=== PATIENT | female | born 1940 | race Caucasian/White ===

== ENCOUNTER 2024-04-22 16:57 | Inpatient (IN) ==
[2024-04-22 17:47] LABS: Basophils # (Auto) 0.03 K/mcL (0.00-0.30); Basophils % (Auto) 0.4 % (0.0-2.0); Eosinophils % (Auto) 2.6 % (0.0-7.0); Hematocrit 22.3 % (34.1-44.9); Hemoglobin 6.7 g/dL (11.2-15.7); Lymphocytes % (Auto) 18.4 % (15.5-49.0); Mean Cell Volume 85.8 fL (80.0-100.0); Mean Platelet Volume 9.6 fL (8.8-12.5); Monocytes # (Auto) 0.53 K/mcL (0.10-0.90); Neutrophils % (Auto) 71.2 % (38.0-78.0); Platelet Count 346 K/mcL (140-440); Red Cell Distribution Width 17.4 % (11.5-14.5); WBC 7.6 K/mcL (4.5-11.0)
[2024-04-22 17:56] LABS: Blood Urea Nitrogen 50 mg/dL (8-23); Calcium 9.4 mg/dL (8.6-10.4); Carbon Dioxide 19 mmol/L (22-30); Chloride 107 mmol/L (96-108); Glomerular Filtration Rate 17; Glucose 233 mg/dL (70-105); Potassium 4.7 mmol/L (3.3-5.1); Sodium 138 mmol/L (133-145)
[2024-04-22] MEDS: FUROSEMIDE 20 MG/2 ML VIAL IV ONE (18:21)
[2024-04-22 18:50] LABS: INR 1.2 (0.9-1.1)
[2024-04-22] MEDS: AZITHROMYCIN 250 MG TABLET PO ONE (19:21)
[2024-04-22] MEDS: cefTRIAXone 1 GM VIAL IV ONE (19:21)
[2024-04-22 19:24] LABS: Appearance,Urine Cloudy (Clear); Bacteria,Urine Many /hpf (0); Bilirubin,Urine Negative (Negative); Color,Urine Yellow; Glucose,Urine (UA) 100 mg/dL (Negative); Ketones,Urine Negative (Negative); Leukocyte Esterase,Urine Small /uL (Negative); Nitrate,Urine Negative (Negative); PH,Urine 5.5 (5.0-9.0); Protein,Urine >=300 mg/dL (Negative); Urine Blood Moderate ery/mcL (Negative); Urine RBC 15 /hpf (0-3); Urine Squamous Epithelial Cell 1 /hpf (0-4); Urine WBC > 182 /hpf (0-4); Urobilinogen,Urine Normal
[2024-04-22 19:31] LABS: Retic Absolute 0.05 M/mcL (0.02-0.10)
[2024-04-22 19:46] LABS: ALT/SGPT 15 U/L (<40); AST/SGOT 24 U/L (<32); Albumin 3.1 gm/dL (3.2-5.2); Alkaline Phosphatase 86 U/L (39-117); Bilirubin,Direct < 0.2 mg/dL (0-0.3); Bilirubin,Total < 0.2 mg/dL (0.1-1.0); Globulin 3.7 gm/dL (2.2-3.7)
[2024-04-22 19:57] LABS: Lactate Dehydrogenase 236 U/L (135-225)
[2024-04-22] MEDS: 0.9 % SODIUM CHLORIDE 250 ML IV SCH (20:09)
[2024-04-22] MEDS ORDERED: POTASSIUM CHLORIDE 20 MEQ TABLET PO PRN ×2 (20:50)
[2024-04-22] MEDS ORDERED: METOPROLOL TARTRATE 5 MG/5 ML VIAL IV PRN (20:50)
[2024-04-22] MEDS ORDERED: SENNOSIDES 1 TABLET PO PRN (20:50)
[2024-04-22] MEDS ORDERED: POLYETHYLENE GLYCOL 3350 17 GM PACKET PO PRN (20:50)
[2024-04-22] MEDS ORDERED: METOCLOPRAMIDE 10 MG/2 ML VIAL IV PRN (20:50)
[2024-04-22] MEDS ORDERED: POTASSIUM CHLORIDE 40 MEQ in DEXTROSE 5% IN WATER 500 ML IV PRN (20:50)
[2024-04-22] MEDS ORDERED: DEXTROSE 50% 50 ML VIAL IV PRN (20:50)
[2024-04-22] MEDS ORDERED: DEXTROSE 31 GM ORAL.SUSP PO PRN (20:50)
[2024-04-22] MEDS ORDERED: ONDANSETRON 4 MG/2 ML VIAL IV PRN (20:50)
[2024-04-22] MEDS ORDERED: MAGNESIUM SULFATE 2 GM/50 ML BAG IV PRN (20:50)
[2024-04-22] MEDS: FUROSEMIDE 40 MG/4 ML VIAL IV SCH (21:48)
[2024-04-22] MEDS: cloNIDine HCL 0.1 MG TABLET PO PRN (21:48)
[2024-04-22] MEDS: SODIUM BICARBONATE 650 MG TABLET PO SCH (21:48)
[2024-04-22] MEDS: DOCUSATE SODIUM 100 MG CAPSULE PO SCH (21:48)
[2024-04-22 22:01] LABS: Estimated Average Glucose(eAG) 171 mg/dL; Hemoglobin A1C 7.6 % Hgb (4.0-6.0)
[2024-04-22] MEDS: INSULIN LISPRO 1 UNIT/0.01 ML UNIT SQ SCH (22:06)
[2024-04-22 22:07] LABS: Iron 25 ug/dL (37-145); TIBC Calculation 288 ug/dl (228-428); Transferrin % Saturation 9 % (15-50)
[2024-04-22] MEDS: [UNRECOGNIZED DRUG - OTHER] SUB-Q SCH (22:13)
[2024-04-22] MEDS: INSULIN SUB-Q SCH (22:13)
[2024-04-22] MEDS: INSULIN GLARGINE 100 UNIT/ML SUB-Q SCH (22:13)
[2024-04-22] MEDS: INSULIN GLARGINE, HUMAN 1 UNIT/0.01 ML SQ ONE (22:14)
[2024-04-22] MEDS: DILTIAZEM HCL 60 MG PO SCH (22:15)
[2024-04-22 22:18] LABS: Ferritin 58.5 ng/mL (30.0-400.0)
[2024-04-22] MEDS: DILTIAZEM 30 MG TABLET ONE (22:38)
[2024-04-23] MEDS: 0.9 % SODIUM CHLORIDE 10 ML SYRINGE IV SCH (04:02)
[2024-04-23 06:40] LABS: Basophils # (Auto) 0.04 K/mcL (0.00-0.30); Basophils % (Auto) 0.5 % (0.0-2.0); Eosinophils # (Auto) 0.21 K/mcL (0.00-0.70); Eosinophils % (Auto) 2.7 % (0.0-7.0); Hematocrit 23.7 % (34.1-44.9); Hemoglobin 7.3 g/dL (11.2-15.7); Lymphocytes # (Auto) 0.85 K/mcL (1.50-4.80); Lymphocytes % (Auto) 10.9 % (15.5-49.0); Mean Cell Volume 88.1 fL (80.0-100.0); Mean Corpuscular HGB Conc 30.8 g/dL (31.0-36.0); Mean Platelet Volume 9.7 fL (8.8-12.5); Monocytes % (Auto) 5.1 % (1.0-12.0); Neutrophils % (Auto) 80.7 % (38.0-78.0); Platelet Count 296 K/mcL (140-440); RBC 2.69 M/mcL (3.59-5.38); Red Cell Distribution Width 17.6 % (11.5-14.5); WBC 7.8 K/mcL (4.5-11.0)
[2024-04-23 06:54] LABS: ALT/SGPT 18 U/L (<40); AST/SGOT 22 U/L (<32); Albumin/Globulin Ratio 0.9 (1.0-2.3); Alkaline Phosphatase 74 U/L (39-117); Bilirubin,Direct < 0.2 mg/dL (0-0.3); Bilirubin,Total < 0.2 mg/dL (0.1-1.0); Blood Urea Nitrogen 50 mg/dL (8-23); Carbon Dioxide 22 mmol/L (22-30); Chloride 107 mmol/L (96-108); Globulin 3.3 gm/dL (2.2-3.7); Glomerular Filtration Rate 18; Glucose 236 mg/dL (70-105); Lactate Dehydrogenase 195 U/L (135-225); Potassium 5.1 mmol/L (3.3-5.1); Sodium 139 mmol/L (133-145); Triglycerides 56 mg/dL (<150); Uric Acid 8.3 mg/dL (2.5-8.0)
[2024-04-23] MEDS: LEVOTHYROXINE 100 MCG TABLET PO SCH (07:56)
[2024-04-23] MEDS: RIVAROXABAN 15 MG TABLET PO SCH (08:36)
[2024-04-23] MEDS: DILTIAZEM 30 MG TABLET PO SCH (08:36)
[2024-04-23] MEDS: ALBUMIN HUMAN 12.5 GM/50 ML VIAL IV SCH (10:13)
[2024-04-23] MEDS: FUROSEMIDE 40 MG/4 ML VIAL IV SCH ×2 (10:13→15:50)
[2024-04-23] MEDS: IPRATROPIUM/ALBUTEROL 3 ML AMPUL.NEB NEB PRN (11:21)
[2024-04-23] MEDS: LABETALOL HCL 20 MG/4 ML VIAL IV PRN (17:03)
[2024-04-23] MEDS: SIMVASTATIN 20 MG TABLET PO SCH (20:15)
[2024-04-23] MEDS: LORazepam 0.5 MG TABLET PO PRN (20:15)
[2024-04-23] MEDS: INSULIN GLARGINE, HUMAN 1 UNIT/0.01 ML SQ SCH (20:17)
[2024-04-23] MEDS: cefTRIAXone 1 GM VIAL ONE (22:03)
[2024-04-23] MEDS: cefTRIAXone 1 GM VIAL IV SCH (22:04)
[2024-04-24 06:20] LABS: Blood Urea Nitrogen 58 mg/dL (8-23); Calcium 9.5 mg/dL (8.6-10.4); Carbon Dioxide 24 mmol/L (22-30); Chloride 105 mmol/L (96-108); Glomerular Filtration Rate 15; Glucose 103 mg/dL (70-105); Potassium 5.4 mmol/L (3.3-5.1); Sodium 141 mmol/L (133-145)
[2024-04-24 06:21] LABS: Hematocrit 24.1 % (34.1-44.9); Hemoglobin 7.5 g/dL (11.2-15.7)
[2024-04-25 07:08] LABS: ALT/SGPT 20 U/L (<40); AST/SGOT 25 U/L (<32); Albumin 2.9 gm/dL (3.2-5.2); Albumin/Globulin Ratio 0.8 (1.0-2.3); Alkaline Phosphatase 78 U/L (39-117); Bilirubin,Direct < 0.2 mg/dL (0-0.3); Bilirubin,Total < 0.2 mg/dL (0.1-1.0); Blood Urea Nitrogen 70 mg/dL (8-23); Calcium 9.3 mg/dL (8.6-10.4); Carbon Dioxide 22 mmol/L (22-30); Chloride 101 mmol/L (96-108); Globulin 3.7 gm/dL (2.2-3.7); Glomerular Filtration Rate 15; Glucose 192 mg/dL (70-105); Lactate Dehydrogenase 292 U/L (135-225); Phosphorous 5.6 mg/dL (2.5-4.5); Potassium 5.9 mmol/L (3.3-5.1); Sodium 135 mmol/L (133-145); Triglycerides 62 mg/dL (<150)
[2024-04-25] MEDS: INSULIN GLARGINE, HUMAN 1 UNIT/0.01 ML SQ ONE (08:47)
[2024-04-25] MEDS: SODIUM ZIRCONIUM CYCLOSILICATE 10 GM PACKET PO ONE (08:48)
[2024-04-25] MEDS: 0.9 % SODIUM CHLORIDE 1,000 ML IV ONE (08:48)
[2024-04-25] MEDS: SODIUM POLYSTYRENE SULFONATE 15 GM/60 ML SUSPENSION PO ONE (08:48)
[2024-04-25 15:33] LABS: Blood Urea Nitrogen 68 mg/dL (8-23); Carbon Dioxide 23 mmol/L (22-30); Chloride 102 mmol/L (96-108); Glomerular Filtration Rate 16; Glucose 189 mg/dL (70-105); Potassium 5.5 mmol/L (3.3-5.1); Sodium 135 mmol/L (133-145)
[2024-04-26 05:57] LABS: Basophils # (Auto) 0.04 K/mcL (0.00-0.30); Basophils % (Auto) 0.5 % (0.0-2.0); Eosinophils # (Auto) 0.28 K/mcL (0.00-0.70); Eosinophils % (Auto) 3.7 % (0.0-7.0); Hematocrit 27.1 % (34.1-44.9); Hemoglobin 8.3 g/dL (11.2-15.7); Lymphocytes # (Auto) 1.28 K/mcL (1.50-4.80); Lymphocytes % (Auto) 16.8 % (15.5-49.0); Mean Cell Volume 86.9 fL (80.0-100.0); Mean Corpuscular HGB Conc 30.6 g/dL (31.0-36.0); Mean Platelet Volume 9.8 fL (8.8-12.5); Monocytes # (Auto) 0.51 K/mcL (0.10-0.90); Monocytes % (Auto) 6.7 % (1.0-12.0); Neutrophils % (Auto) 72.2 % (38.0-78.0); Platelet Count 349 K/mcL (140-440); RBC 3.12 M/mcL (3.59-5.38); WBC 7.6 K/mcL (4.5-11.0)
[2024-04-26 06:26] LABS: ALT/SGPT 19 U/L (<40); AST/SGOT 20 U/L (<32); Albumin 2.9 gm/dL (3.2-5.2); Albumin/Globulin Ratio 0.8 (1.0-2.3); Alkaline Phosphatase 75 U/L (39-117); Bilirubin,Direct < 0.2 mg/dL (0-0.3); Bilirubin,Total < 0.2 mg/dL (0.1-1.0); Blood Urea Nitrogen 61 mg/dL (8-23); Calcium 8.8 mg/dL (8.6-10.4); Carbon Dioxide 24 mmol/L (22-30); Chloride 105 mmol/L (96-108); Globulin 3.6 gm/dL (2.2-3.7); Glomerular Filtration Rate 18; Glucose 78 mg/dL (70-105); Lactate Dehydrogenase 259 U/L (135-225); Phosphorous 5.1 mg/dL (2.5-4.5); Sodium 140 mmol/L (133-145); Triglycerides 90 mg/dL (<150); Uric Acid 8.7 mg/dL (2.5-8.0)
[2024-04-26] MEDS: NIFEdipine 30 MG TAB.XL.24H PO SCH (08:42)
[2024-04-27 06:42] LABS: Basophils # (Auto) 0.03 K/mcL (0.00-0.30); Basophils % (Auto) 0.3 % (0.0-2.0); Eosinophils % (Auto) 3.4 % (0.0-7.0); Hematocrit 24.6 % (34.1-44.9); Hemoglobin 7.6 g/dL (11.2-15.7); Lymphocytes # (Auto) 1.75 K/mcL (1.50-4.80); Lymphocytes % (Auto) 19.8 % (15.5-49.0); Mean Cell Volume 87.2 fL (80.0-100.0); Mean Corpuscular HGB Conc 30.9 g/dL (31.0-36.0); Monocytes # (Auto) 0.82 K/mcL (0.10-0.90); Monocytes % (Auto) 9.3 % (1.0-12.0); Platelet Count 358 K/mcL (140-440); RBC 2.82 M/mcL (3.59-5.38); Red Cell Distribution Width 19.2 % (11.5-14.5); WBC 8.8 K/mcL (4.5-11.0)
[2024-04-27 07:04] LABS: ALT/SGPT 19 U/L (<40); AST/SGOT 21 U/L (<32); Albumin 2.9 gm/dL (3.2-5.2); Albumin/Globulin Ratio 0.8 (1.0-2.3); Alkaline Phosphatase 71 U/L (39-117); Bilirubin,Direct < 0.2 mg/dL (0-0.3); Bilirubin,Total < 0.2 mg/dL (0.1-1.0); Blood Urea Nitrogen 67 mg/dL (8-23); Calcium 8.7 mg/dL (8.6-10.4); Carbon Dioxide 23 mmol/L (22-30); Chloride 105 mmol/L (96-108); Globulin 3.5 gm/dL (2.2-3.7); Glomerular Filtration Rate 15; Glucose 79 mg/dL (70-105); Lactate Dehydrogenase 231 U/L (135-225); Phosphorous 5.8 mg/dL (2.5-4.5); Potassium 5.6 mmol/L (3.3-5.1); Sodium 140 mmol/L (133-145); Triglycerides 66 mg/dL (<150); Uric Acid 9.1 mg/dL (2.5-8.0)
[2024-04-27] MEDS: SODIUM BICARBONATE VIAL 150 MEQ in WATER FOR INJECTION,STERILE 850 ML IV SCH (09:36)
[2024-04-27] MEDS: SODIUM ZIRCONIUM CYCLOSILICATE 10 GM PACKET PO ONE (12:51)
[2024-04-27] MEDS: IRON SUCROSE COMPLEX 100 MG/5 ML VIAL IV SCH (12:51)
[2024-04-27 14:54] LABS: Blood Urea Nitrogen 67 mg/dL (8-23); Calcium 8.6 mg/dL (8.6-10.4); Carbon Dioxide 25 mmol/L (22-30); Chloride 100 mmol/L (96-108); Glomerular Filtration Rate 15; Glucose 185 mg/dL (70-105); Potassium 5.8 mmol/L (3.3-5.1); Sodium 138 mmol/L (133-145)
[2024-04-27 20:53] LABS: Potassium 5.8 mmol/L (3.3-5.1)
[2024-04-27] MEDS: MELATONIN 3 MG TABLET PO PRN (21:14)
[2024-04-27] MEDS: SODIUM ZIRCONIUM CYCLOSILICATE 5 GM PACKET PO ONE (21:14)
[2024-04-27] MEDS: SODIUM ZIRCONIUM CYCLOSILICATE 5 GM PACKET ONE (21:45)
[2024-04-27] MEDS: SODIUM ZIRCONIUM CYCLOSILICATE 10 GM PACKET ONE (21:45)
[2024-04-27] MEDS: MELATONIN 3 MG TABLET PO ONE (21:45)
[2024-04-28 07:17] LABS: Basophils # (Auto) 0.03 K/mcL (0.00-0.30); Basophils % (Auto) 0.3 % (0.0-2.0); Eosinophils # (Auto) 0.35 K/mcL (0.00-0.70); Eosinophils % (Auto) 4.1 % (0.0-7.0); Hematocrit 22.5 % (34.1-44.9); Lymphocytes # (Auto) 1.66 K/mcL (1.50-4.80); Lymphocytes % (Auto) 19.2 % (15.5-49.0); Mean Cell Volume 86.5 fL (80.0-100.0); Mean Corpuscular HGB Conc 31.1 g/dL (31.0-36.0); Mean Platelet Volume 9.8 fL (8.8-12.5); Monocytes # (Auto) 0.83 K/mcL (0.10-0.90); Monocytes % (Auto) 9.6 % (1.0-12.0); Neutrophils % (Auto) 66.6 % (38.0-78.0); Platelet Count 291 K/mcL (140-440); Red Cell Distribution Width 19.2 % (11.5-14.5); WBC 8.6 K/mcL (4.5-11.0)
[2024-04-28 07:23] LABS: ALT/SGPT 18 U/L (<40); AST/SGOT 19 U/L (<32); Albumin 2.9 gm/dL (3.2-5.2); Alkaline Phosphatase 63 U/L (39-117); Bilirubin,Direct < 0.2 mg/dL (0-0.3); Bilirubin,Total < 0.2 mg/dL (0.1-1.0); Blood Urea Nitrogen 68 mg/dL (8-23); Calcium 7.9 mg/dL (8.6-10.4); Carbon Dioxide 28 mmol/L (22-30); Chloride 98 mmol/L (96-108); Globulin 2.9 gm/dL (2.2-3.7); Glomerular Filtration Rate 14; Glucose 97 mg/dL (70-105); Lactate Dehydrogenase 214 U/L (135-225); Phosphorous 5.6 mg/dL (2.5-4.5); Potassium 4.8 mmol/L (3.3-5.1); Sodium 138 mmol/L (133-145); Triglycerides 90 mg/dL (<150)
[2024-04-28 08:23] LABS: Hematocrit 22.9 % (34.1-44.9); Hemoglobin 7.1 g/dL (11.2-15.7)
[2024-04-28] MEDS: 0.9 % SODIUM CHLORIDE 250 ML IV SCH ×2 (09:01)
[2024-04-28] MEDS: FUROSEMIDE 40 MG/4 ML VIAL IV SCH ×2 (12:02→20:16)
[2024-04-28 12:54] LABS: Partial Thromboplastin Time 43.7 sec (20.0-37.0); Prothrombin Time 23.8 sec (11.9-14.5)
[2024-04-28] MEDS: morphine 2 MG/ML VIAL IV PRN (12:54)
[2024-04-28 14:32] LABS: Hematocrit 23.9 % (34.1-44.9); Hemoglobin 7.3 g/dL (11.2-15.7)
[2024-04-28 15:59] LABS: pH,Body Fluid 7.73
[2024-04-28 16:12] LABS: Total Protein,Body Fluid 1.4 gm/dL
[2024-04-28 16:20] LABS: Amylase,Pleural Fluid 16 U/L; Glucose,Pleural Fluid 196 mg/dL; LDH,Pleural Fluid 81 U/L (<122)
[2024-04-28 16:55] LABS: Appearance,Pleural Fluid Clear; Color,Pleural Fluid P. Yellow; Lymphocytes,Pleural Fluid 53 %; Mesothelial,Pleural Fluid 10 %; Monocytes,Pleural Fluid 28 %; Neutrophils,Pleural Fluid 9 %; Nucleated Cells,Pleural Fld 219 /cumm; RBC,Pleural Fluid <50,000 /cumm
[2024-04-28] MEDS: CEFUROXIME 500 MG TABLET PO SCH (20:17)
[2024-04-29 05:54] LABS: Basophils # (Auto) 0.03 K/mcL (0.00-0.30); Basophils % (Auto) 0.3 % (0.0-2.0); Eosinophils # (Auto) 0.15 K/mcL (0.00-0.70); Eosinophils % (Auto) 1.5 % (0.0-7.0); Hematocrit 23.6 % (34.1-44.9); Hemoglobin 7.4 g/dL (11.2-15.7); Mean Cell Volume 85.5 fL (80.0-100.0); Mean Corpuscular HGB Conc 31.4 g/dL (31.0-36.0); Mean Platelet Volume 9.8 fL (8.8-12.5); Monocytes # (Auto) 0.71 K/mcL (0.10-0.90); Monocytes % (Auto) 7.1 % (1.0-12.0); Neutrophils % (Auto) 80.7 % (38.0-78.0); Platelet Count 325 K/mcL (140-440); RBC 2.76 M/mcL (3.59-5.38)
[2024-04-29 07:03] LABS: ALT/SGPT 23 U/L (<40); AST/SGOT 28 U/L (<32); Albumin 2.7 gm/dL (3.2-5.2); Albumin/Globulin Ratio 0.8 (1.0-2.3); Alkaline Phosphatase 78 U/L (39-117); Bilirubin,Direct < 0.2 mg/dL (0-0.3); Bilirubin,Total < 0.2 mg/dL (0.1-1.0); Blood Urea Nitrogen 73 mg/dL (8-23); Carbon Dioxide 27 mmol/L (22-30); Chloride 95 mmol/L (96-108); Globulin 3.3 gm/dL (2.2-3.7); Glomerular Filtration Rate 12; Glucose 62 mg/dL (70-105); Lactate Dehydrogenase 228 U/L (135-225); Potassium 5.1 mmol/L (3.3-5.1); Sodium 135 mmol/L (133-145); Triglycerides 47 mg/dL (<150); Uric Acid 9.8 mg/dL (2.5-8.0)
[2024-04-29] MEDS: VITAMIN D3 25 MCG TABLET PO SCH (08:49)
[2024-04-29] MEDS: SEVELAMER 800 MG TABLET PO SCH (08:49)
[2024-04-30 06:28] LABS: Basophils # (Auto) 0.05 K/mcL (0.00-0.30); Basophils % (Auto) 0.6 % (0.0-2.0); Eosinophils # (Auto) 0.28 K/mcL (0.00-0.70); Eosinophils % (Auto) 3.4 % (0.0-7.0); Hematocrit 23.3 % (34.1-44.9); Hemoglobin 7.1 g/dL (11.2-15.7); Lymphocytes # (Auto) 1.54 K/mcL (1.50-4.80); Lymphocytes % (Auto) 18.9 % (15.5-49.0); Mean Cell Volume 87.6 fL (80.0-100.0); Mean Corpuscular HGB Conc 30.5 g/dL (31.0-36.0); Mean Platelet Volume 9.9 fL (8.8-12.5); Monocytes # (Auto) 0.72 K/mcL (0.10-0.90); Monocytes % (Auto) 8.8 % (1.0-12.0); Neutrophils % (Auto) 67.9 % (38.0-78.0); Platelet Count 312 K/mcL (140-440); RBC 2.66 M/mcL (3.59-5.38); Red Cell Distribution Width 19.3 % (11.5-14.5); WBC 8.2 K/mcL (4.5-11.0)
[2024-04-30 07:32] LABS: ALT/SGPT 19 U/L (<40); AST/SGOT 23 U/L (<32); Albumin 2.6 gm/dL (3.2-5.2); Albumin/Globulin Ratio 0.8 (1.0-2.3); Alkaline Phosphatase 71 U/L (39-117); Bilirubin,Direct < 0.2 mg/dL (0-0.3); Bilirubin,Total < 0.2 mg/dL (0.1-1.0); Blood Urea Nitrogen 71 mg/dL (8-23); Calcium 7.9 mg/dL (8.6-10.4); Carbon Dioxide 27 mmol/L (22-30); Chloride 93 mmol/L (96-108); Globulin 3.2 gm/dL (2.2-3.7); Glomerular Filtration Rate 11; Glucose 100 mg/dL (70-105); Lactate Dehydrogenase 212 U/L (135-225); Phosphorous 7.1 mg/dL (2.5-4.5); Potassium 4.7 mmol/L (3.3-5.1); Sodium 134 mmol/L (133-145); Triglycerides 52 mg/dL (<150); Uric Acid 10.3 mg/dL (2.5-8.0)
[2024-04-30 07:33] LABS: Vitamin D 25 Hydroxy-SO 22.2 ng/mL (>30.00)
[2024-04-30] MEDS: CALCIUM ACETATE 667 MG TABLET PO SCH (12:05)
[2024-05-01 07:00] LABS: ALT/SGPT 18 U/L (<40); AST/SGOT 21 U/L (<32); Albumin 2.6 gm/dL (3.2-5.2); Albumin/Globulin Ratio 0.8 (1.0-2.3); Alkaline Phosphatase 67 U/L (39-117); Bilirubin,Direct < 0.2 mg/dL (0-0.3); Bilirubin,Total < 0.2 mg/dL (0.1-1.0); Blood Urea Nitrogen 69 mg/dL (8-23); Calcium 8.4 mg/dL (8.6-10.4); Carbon Dioxide 26 mmol/L (22-30); Chloride 95 mmol/L (96-108); Globulin 3.1 gm/dL (2.2-3.7); Glomerular Filtration Rate 11; Glucose 119 mg/dL (70-105); Lactate Dehydrogenase 202 U/L (135-225); Phosphorous 6.7 mg/dL (2.5-4.5); Potassium 4.9 mmol/L (3.3-5.1); Sodium 133 mmol/L (133-145); Triglycerides 38 mg/dL (<150); Uric Acid 10.4 mg/dL (2.5-8.0)
[2024-05-01 07:22] LABS: Basophils # (Auto) 0.05 K/mcL (0.00-0.30); Basophils % (Auto) 0.6 % (0.0-2.0); Eosinophils # (Auto) 0.25 K/mcL (0.00-0.70); Eosinophils % (Auto) 3.2 % (0.0-7.0); Hematocrit 23.1 % (34.1-44.9); Lymphocytes # (Auto) 1.31 K/mcL (1.50-4.80); Lymphocytes % (Auto) 16.7 % (15.5-49.0); Mean Cell Volume 88.8 fL (80.0-100.0); Mean Corpuscular HGB Conc 30.3 g/dL (31.0-36.0); Mean Platelet Volume 10.3 fL (8.8-12.5); Monocytes # (Auto) 0.71 K/mcL (0.10-0.90); Monocytes % (Auto) 9.1 % (1.0-12.0); Neutrophils % (Auto) 69.9 % (38.0-78.0); Platelet Count 319 K/mcL (140-440); Red Cell Distribution Width 19.1 % (11.5-14.5); WBC 7.8 K/mcL (4.5-11.0)
[2024-05-01 07:57] LABS: Hematocrit 23.4 % (34.1-44.9); Hemoglobin 7.1 g/dL (11.2-15.7)
[2024-05-01] MEDS: FUROSEMIDE 100 MG/10 ML VIAL IV SCH ×2 (10:14→18:31)
[2024-05-01] MEDS: 0.9 % SODIUM CHLORIDE 250 ML IV SCH (10:14)
[2024-05-02 06:37] LABS: Basophils # (Auto) 0.05 K/mcL (0.00-0.30); Basophils % (Auto) 0.6 % (0.0-2.0); Eosinophils # (Auto) 0.27 K/mcL (0.00-0.70); Hemoglobin 8.9 g/dL (11.2-15.7); Lymphocytes # (Auto) 1.51 K/mcL (1.50-4.80); Lymphocytes % (Auto) 16.9 % (15.5-49.0); Mean Cell Volume 88.6 fL (80.0-100.0); Mean Corpuscular HGB Conc 31.8 g/dL (31.0-36.0); Mean Platelet Volume 9.8 fL (8.8-12.5); Monocytes # (Auto) 0.85 K/mcL (0.10-0.90); Monocytes % (Auto) 9.5 % (1.0-12.0); Neutrophils % (Auto) 69.4 % (38.0-78.0); Platelet Count 324 K/mcL (140-440); RBC 3.16 M/mcL (3.59-5.38); Red Cell Distribution Width 18.1 % (11.5-14.5); WBC 8.9 K/mcL (4.5-11.0)
[2024-05-02 07:08] LABS: ALT/SGPT 17 U/L (<40); AST/SGOT 22 U/L (<32); Albumin 2.8 gm/dL (3.2-5.2); Albumin/Globulin Ratio 0.8 (1.0-2.3); Alkaline Phosphatase 72 U/L (39-117); Bilirubin,Direct < 0.2 mg/dL (0-0.3); Bilirubin,Total 0.2 mg/dL (0.1-1.0); Blood Urea Nitrogen 67 mg/dL (8-23); Carbon Dioxide 27 mmol/L (22-30); Chloride 96 mmol/L (96-108); Globulin 3.3 gm/dL (2.2-3.7); Glomerular Filtration Rate 11; Glucose 88 mg/dL (70-105); Lactate Dehydrogenase 254 U/L (135-225); Phosphorous 6.4 mg/dL (2.5-4.5); Potassium 6.3 mmol/L (3.3-5.1); Sodium 136 mmol/L (133-145); Triglycerides 42 mg/dL (<150); Uric Acid 11.2 mg/dL (2.5-8.0)
[2024-05-02] MEDS: INSULIN REGULAR, HUMAN 1 UNIT/0.01 ML UNIT IV ONE (08:22)
[2024-05-02] MEDS: DEXTROSE 50% 50 ML SYRINGE IV ONE (08:22)
[2024-05-02] MEDS: SODIUM ZIRCONIUM CYCLOSILICATE 10 GM PACKET PO ONE (08:52)
[2024-05-02 12:30] LABS: Blood Urea Nitrogen 66 mg/dL (8-23); Carbon Dioxide 27 mmol/L (22-30); Chloride 95 mmol/L (96-108); Glomerular Filtration Rate 12; Glucose 197 mg/dL (70-105); Potassium 4.5 mmol/L (3.3-5.1); Sodium 136 mmol/L (133-145)
[2024-05-03 06:15] LABS: Basophils # (Auto) 0.03 K/mcL (0.00-0.30); Basophils % (Auto) 0.3 % (0.0-2.0); Eosinophils # (Auto) 0.12 K/mcL (0.00-0.70); Eosinophils % (Auto) 1.1 % (0.0-7.0); Hemoglobin 8.9 g/dL (11.2-15.7); Lymphocytes # (Auto) 1.02 K/mcL (1.50-4.80); Lymphocytes % (Auto) 9.5 % (15.5-49.0); Mean Cell Volume 91.2 fL (80.0-100.0); Mean Corpuscular HGB Conc 30.7 g/dL (31.0-36.0); Monocytes # (Auto) 0.75 K/mcL (0.10-0.90); Neutrophils % (Auto) 81.7 % (38.0-78.0); Platelet Count 301 K/mcL (140-440); RBC 3.18 M/mcL (3.59-5.38); Red Cell Distribution Width 18.7 % (11.5-14.5); WBC 10.8 K/mcL (4.5-11.0)
[2024-05-03 06:54] LABS: ALT/SGPT 17 U/L (<40); AST/SGOT 21 U/L (<32); Albumin 2.8 gm/dL (3.2-5.2); Albumin/Globulin Ratio 0.8 (1.0-2.3); Alkaline Phosphatase 68 U/L (39-117); Bilirubin,Direct < 0.2 mg/dL (0-0.3); Bilirubin,Total < 0.2 mg/dL (0.1-1.0); Blood Urea Nitrogen 61 mg/dL (8-23); Calcium 9.2 mg/dL (8.6-10.4); Carbon Dioxide 27 mmol/L (22-30); Chloride 97 mmol/L (96-108); Globulin 3.3 gm/dL (2.2-3.7); Glomerular Filtration Rate 13; Glucose 103 mg/dL (70-105); Lactate Dehydrogenase 215 U/L (135-225); Phosphorous 5.8 mg/dL (2.5-4.5); Potassium 4.3 mmol/L (3.3-5.1); Sodium 136 mmol/L (133-145); Triglycerides 34 mg/dL (<150); Uric Acid 11.1 mg/dL (2.5-8.0)
[2024-05-03 07:15] LABS: Iron 46 ug/dL (37-145); TIBC Calculation 260 ug/dl (228-428); Transferrin % Saturation 18 % (15-50)
[2024-05-03] MEDS: ACETAMINOPHEN 325 MG TABLET PO PRN (08:27)
[2024-05-04 06:50] LABS: Basophils # (Auto) 0.03 K/mcL (0.00-0.30); Basophils % (Auto) 0.3 % (0.0-2.0); Eosinophils # (Auto) 0.33 K/mcL (0.00-0.70); Eosinophils % (Auto) 3.8 % (0.0-7.0); Hematocrit 27.7 % (34.1-44.9); Hemoglobin 8.5 g/dL (11.2-15.7); Lymphocytes # (Auto) 1.63 K/mcL (1.50-4.80); Lymphocytes % (Auto) 18.7 % (15.5-49.0); Mean Cell Volume 91.1 fL (80.0-100.0); Mean Corpuscular HGB Conc 30.7 g/dL (31.0-36.0); Mean Platelet Volume 9.4 fL (8.8-12.5); Monocytes # (Auto) 0.71 K/mcL (0.10-0.90); Monocytes % (Auto) 8.1 % (1.0-12.0); Neutrophils % (Auto) 68.8 % (38.0-78.0); Platelet Count 284 K/mcL (140-440); RBC 3.04 M/mcL (3.59-5.38); Red Cell Distribution Width 18.7 % (11.5-14.5); WBC 8.7 K/mcL (4.5-11.0)
[2024-05-04 07:25] LABS: ALT/SGPT 14 U/L (<40); AST/SGOT 20 U/L (<32); Albumin 2.8 gm/dL (3.2-5.2); Albumin/Globulin Ratio 0.9 (1.0-2.3); Alkaline Phosphatase 64 U/L (39-117); Bilirubin,Direct < 0.2 mg/dL (0-0.3); Bilirubin,Total < 0.2 mg/dL (0.1-1.0); Blood Urea Nitrogen 59 mg/dL (8-23); Carbon Dioxide 26 mmol/L (22-30); Chloride 99 mmol/L (96-108); Globulin 3.2 gm/dL (2.2-3.7); Glomerular Filtration Rate 14; Glucose 104 mg/dL (70-105); Lactate Dehydrogenase 199 U/L (135-225); Potassium 4.2 mmol/L (3.3-5.1); Sodium 138 mmol/L (133-145); Triglycerides 46 mg/dL (<150); Uric Acid 10.9 mg/dL (2.5-8.0)
[2024-05-04 07:47] VITALS: O2SAT 94
[2024-05-04] MEDS: ONDANSETRON 4 MG ODT TABLET SL PRN (09:12)
[2024-05-04 11:35] VITALS: TEMP 98.9
== END 2024-05-04 14:20 | DRG 682 ==
LOC: ED 16:57 → MEDSUR 20:47 → ICU 04-23 13:32 → MEDSUR 05-02 21:17
PROVIDERS: ADMIT Internal Medicine; ATTEND Student in an Organized Health Care Education/Training Program